=== PATIENT | female | born 1940 | race Native Hawaiian/Other Pacific Islander ===

== ENCOUNTER 2018-04-23 08:15 | Outpatient (CLI) | payer OTHER | END 2018-04-23 22:27 | disposition home or self-care (01) | LOC: LABW 08:15 | DX: R19.7 Diarrhea, unspecified (principal) | CPT/HCPCS: 82272; 87015; 87045; 87205; 87324; 87328; 87329; 87449; 87899 ==

== ENCOUNTER 2021-06-17 14:33 | Outpatient (CLI) | payer OTHER | END 2021-06-17 22:26 | disposition home or self-care (01) | LOC: RAD 14:33 | PROVIDERS: ATTEND Nurse Practitioner Family | DX: S76.011A Strain of muscle, fascia and tendon of right hip, initial encounter (principal); S39.012A Strain of muscle, fascia and tendon of lower back, initial encounter ==

== ENCOUNTER 2021-07-18 12:26 | Outpatient (CLI) | payer OTHER | END 2021-07-18 20:19 | disposition home or self-care (01) | LOC: CT 12:26 | PROVIDERS: ATTEND Orthopaedic Surgery | DX: M54.50 Low back pain, unspecified (principal); M54.31 Sciatica, right side; M25.551 Pain in right hip; M25.552 Pain in left hip; S32.511D Fracture of superior rim of right pubis, subsequent encounter for fracture with routine healing; Y92.9 Unspecified place or not applicable ==

== ENCOUNTER 2021-07-26 11:26 | Outpatient (CLI) | payer OTHER | END 2021-07-26 19:25 | disposition home or self-care (01) | LOC: LABW 11:26 | PROVIDERS: ATTEND Orthopaedic Surgery | DX: M54.50 Low back pain, unspecified (principal); Z79.899 Other long term (current) drug therapy; Z13.228 Encounter for screening for other metabolic disorders; Z13.6 Encounter for screening for cardiovascular disorders; Z13.9 Encounter for screening, unspecified; Z11.0 Encounter for screening for intestinal infectious diseases; M25.551 Pain in right hip; M25.552 Pain in left hip; S32.511D Fracture of superior rim of right pubis, subsequent encounter for fracture with routine healing; S32.10XD Unspecified fracture of sacrum, subsequent encounter for fracture with routine healing; Y92.9 Unspecified place or not applicable | CPT/HCPCS: 36415; 82565; 84520 ==

== ENCOUNTER 2022-08-04 18:45 | Emergency (ER) | payer OTHER ==
[~2022-08-04] VITALS: Ht 160 cm; Wt 52.2 kg
[2022-08-04 21:35] VITALS: BP 141/66; TEMP 97.8
== END 2022-08-04 21:35 | disposition home or self-care (01) ==
LOC: ED 18:45
PROC: 2W3CX1Z Immobilization of Right Lower Arm using Splint (ICD-10-PCS; principal; 2022-08-04)
PROC: 0RSNXZZ Reposition Right Wrist Joint, External Approach (ICD-10-PCS; 2022-08-04)
DX: S52.531A Colles' fracture of right radius, initial encounter for closed fracture (principal); S41.111A Laceration without foreign body of right upper arm, initial encounter; W01.0XXA Fall on same level from slipping, tripping and stumbling without subsequent striking against object, initial encounter; Y92.098 Other place in other non-institutional residence as the place of occurrence of the external cause
CPT/HCPCS: 96372; 99283; J2270; J2550